=== PATIENT | male | born 1945 | race Caucasian/White ===

== ENCOUNTER 2025-05-04 23:46 | Emergency (ER) | payer OTHER, MEDICAID, SELFPAY ==
[2025-05-05] VITALS (7 sets, daily range): BP systolic 93–111; BP diastolic 59–75; PULSE 96; TEMP 36.3; O2SAT 93–96; BMI 23.7
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
--- NOTE | 2025-05-05 00:08 | XR_ITS ---
The [address] [address] Patient Name: PAMELA SOTO MRN: [id number] date: 1945 Sex: M Assigned Patient Location: ED.MAIN Current Patient Location: Accession/Order Number: [id number] Exam Date: 05/05/2025 00:27 Report Date: 05/05/2025 09:16 At the request of: KEHINDE SAUCEDO MD Procedure: XR humerus RT RIGHT HUMERUS - 2 views CLINICAL HISTORY: fall COMPARISON: None FINDINGS: Healed remote injury involving the mid humerus. No acute bony process is seen. Calcifications are seen involving the proximal soft tissues likely posttraumatic in nature. Partially visualized degenerative changes involving the elbow. XR/XR humerus RT IMPRESSION: NO ACUTE BONY PROCESS. Impression dictated by: Ben Mark Jr., D.O. 05/05/2025 9:16 AM Dictation Location: [place] [address] Electronically authenticated by: [id number] Y Date: 05/05/2025 09:16
[2025-05-05] MEDS: DIAZEPAM 10 MG/2 ML SYRINGE 5 MG IV (00:19)
[2025-05-05] MEDS: HALOPERIDOL LACTATE 5 MG/ML VIAL IV (00:19)
--- NOTE | 2025-05-05 02:31 | PC.NURSE ---
ETA for transport from [facility] back to [place] is [id number]. Report called to nurse Lamra at [facility], nurse aware of ETA for transport.
== END 2025-05-05 03:34 | disposition home or self-care (01) ==
PROVIDERS: Emergency Provider Internal Medicine
DX: S40.021A Contusion of right upper arm, initial encounter (principal); W07.XXXA Fall from chair, initial encounter
CPT/HCPCS: 70450; 72125; 73060; 76376; 96374; 96375; 99285; J1630; J3360

== ENCOUNTER 2025-05-15 19:50 | Emergency (ER) | payer OTHER, MEDICAID, SELFPAY ==
[2025-05-15 19:54] VITALS: BP 179/110; PULSE 86; TEMP 36.6; O2SAT 96; BMI 23.5
[2025-05-15 20:06] VITALS: BP 173/99
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
== END 2025-05-15 23:35 | disposition home or self-care (01) ==
PROVIDERS: Emergency Provider Student in an Organized Health Care Education/Training Program
DX: R45.4 Irritability and anger (principal)
CPT/HCPCS: 80048; 99283